=== PATIENT | female | born 1965 | race Hispanic/Latino ===

== ENCOUNTER 2019-04-11 13:40 | Inpatient (IN) | payer BC | END 2019-04-14 14:30 | disposition home or self-care (01) | LOC: EDH 13:40 → EDHIP 17:45 → 3BH 20:44 | DX: K56.609 Unspecified intestinal obstruction, unspecified as to partial versus complete obstruction (principal); K57.90 Diverticulosis of intestine, part unspecified, without perforation or abscess without bleeding; D72.829 Elevated white blood cell count, unspecified; K59.00 Constipation, unspecified ==

== ENCOUNTER → 2019-05-11 | Outpatient (CLI) | payer BC | END | disposition home or self-care (01) | LOC: RAH 07:35 | PROVIDERS: ATTEND Family Medicine | DX: K76.0 Fatty (change of) liver, not elsewhere classified (principal) | CPT/HCPCS: 76700 ==

== ENCOUNTER 2021-11-03 06:09 | Emergency (ER) | payer BC ==
[~2021-11-03] VITALS: Ht 162.6 cm; Wt 63.0 kg
[2021-11-03] MEDS ORDERED: TETANUS/DIPHTHERIA TOXOID [ADULT] 0.5 ML VIAL IM SCH (06:30)
[2021-11-03] MEDS ORDERED: ACETAMINOPHEN 500 MG TABLET PO SCH (06:30)
[2021-11-03] MEDS ORDERED: NEOMY SULF/BACITRA/POLYMYXIN B 1 EACH PACKET TP ONE (06:46)
[2021-11-03 07:33] VITALS: BP 148/79
[2021-11-03] MEDS ORDERED: NEOMY SULF/BACITRA/POLYMYXIN B 1 EACH PACKET TP SCH (09:00)
== END 2021-11-03 09:21 | disposition home or self-care (01) ==
LOC: EDH 06:09
DX: S00.83XA Contusion of other part of head, initial encounter (principal); S00.31XA Abrasion of nose, initial encounter; W18.09XA Striking against other object with subsequent fall, initial encounter; Y93.K1 Activity, walking an animal; Y92.89 Other specified places as the place of occurrence of the external cause; Y99.8 Other external cause status
CPT/HCPCS: 70486; 90471; 90714